=== PATIENT | female | born 1955 | race Two or more races ===

== ENCOUNTER 2017-08-26 17:49 | Emergency (ER) | payer BC ==
[2017-08-26 18:05] VITALS: BP 163/76; PULSE 68; TEMP 98.4; BMI 30.1
--- NOTE | 2017-08-26 18:20 | PDOC ---
History of Present Illness - General History Source: Patient Exam Limitations: No Limitations <Cristian High - Last Filed: 08/26/17 18:20> - General History Source: Patient Exam Limitations: No Limitations - History of Present Illness Initial Comments: The patient is a 61 year old female with a significant past medical history of stent placement (2x) and hypertension who presents to the emergency department for evaluation of bilateral leg pain. The patient reports landing on concrete after falling down the last 3 steps of the flight of stairs 3 days ago. The patient reports moderate right leg pain and mild left leg pain. The patient denies loss of consciousness, neck pain, and head trauma. She reports she was able to ambulate after her fall. She reports waking up this morning, noticing moderate right leg swelling and knee bruising which prompted her visit to the emergency department for further evaluation Of note, the patient reports she is currently taking plavix and aspirin. The patient denies chest pain, headache, and dizziness. Denies fevers, chills, nausea, vomiting, diarrhea, and constipation. Denies dysuria, frequency, urgency, and hematuria. Allergies: NKDA. Past surgical history: 2 stents [facility]CA(07-15-24) Social history: No reported cigarette, alcohol, or drug use. 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 <Archana Smith - Last Filed: 08/26/17 19:02> - General Chief Complaint: Injury Stated Complaint: FELL, LEFT KNEE PAIN Time Seen by Provider: 08/26/17 17:51 Past History - Past Medical History Cardiac Disorders: Yes (STENT PLACEMENT 1 MONTH AGO) COPD: No HTN: Yes Kidney Stones: Yes - Surgical History Cardiac Surgery: Yes (2 stents [facility]CA, .24.15) - Suicide/Smoking/Psychosocial Hx Smoking History: Never smoked Have you smoked in the past 12 months: No Information on smoking cessation initiated: No Hx Alcohol Use: No Drug/Substance Use Hx: No Substance Use Type: None Hx Substance Use Treatment: No <Cristian High - Last Filed: 08/26/17 18:20> <Archana Smith - Last Filed: 08/26/17 19:02> - Past Medical History Allergies/Adverse Reactions: Allergies Allergy/AdvReac Type Severity Reaction Status Date / Time No Known Allergies Allergy Verified 08/26/17 17:51 Home Medications: Ambulatory Orders Aspirin [ASA -] 81 mg PO DAILY 08/26/17 Diltiazem [Cardizem -] 240 mg PO DAILY 08/26/17 Losartan/Hydrochlorothiazide [Losartan-Hctz 100-25 mg Tab] 1 each PO DAILY 08/26 Pravastatin Sodium 10 mg PO DAILY 08/26/17 Review of Systems - Review of Systems Able to Perform ROS?: Yes Comments:: CONSTITUTIONAL: No reported: Fever, Chills, Diaphoresis, Generalized Weakness, Malaise, Loss of Appetite HEENT: No reported: , Eye Pain, Visual Changes CARDIOVASCULAR: No reported: Chest Pain, Syncope, Palpitations, Irregular Heart Rate, Lightheadedness, Peripheral Edema RESPIRATORY: No reported: Orthopnea, Wheezing, Stridor, Hemoptysis GASTROINTESTINAL: No reported: Abdominal pain, Nausea, Vomiting, Diarrhea, MUSCULOSKELETAL: (+)Bilateral Knee pain.No reported: Myalgia, Arthralgia, Back pain, Neck Pain SKIN: No reported: Rash, Itching, Pallor HEMEATOLOGIC/IMMUNOLOGIC: No reported: Easy Bleeding, Easy Bruising, Lymphadenopathy, Frequent infections NEUROLOGIC: No reported: Headache, Focal Weakness, Paresthesias, Vertigo, Lightheadedness. <Archana Smith - Last Filed: 08/26/17 19:02> *Physical Exam - Vital Signs Last Vital Signs Temp Pulse Resp BP Pulse Ox 98.4 F 68 20 163/76 99 08/26/17 17:50 08/26/17 17:50 08/26/17 17:50 08/26/17 17:50 08/26/17 17:50 <Cristian High - Last Filed: 08/26/17 18:20> - Vital Signs Last Vital Signs Temp Pulse Resp BP Pulse Ox 98.4 F 68 20 163/76 99 08/26/17 17:50 08/26/17 17:50 08/26/17 17:50 08/26/17 17:50 08/26/17 17:50 - Physical Exam Comments: GENERAL: The patient is awake, alert, and fully oriented, Nontoxic - in no acute distress. HEAD: Normocephalic, atraumatic. EYES: extraocular movements intact, sclera anicteric, conjunctiva clear. ENT: Normal voice, Moist mucous membranes. NECK: Normal range of motion, supple LUNGS: Breath sounds equal, clear to auscultation bilaterally. No wheezes, no rhonchi, no rales. HEART: Regular rate and rhythm, without murmur, rub or gallop. ABDOMEN: Soft, nontender, Back: No midline tenderness to the cervical, thoracic or lumbar spine Musculoskelatal: FROM of b/l shoulders, elbows, wrist. FROM of hips, knees, ankles - diffuse ecchymosis to the R knee with edema, mild diffuse edema to R knee, RLE, no calf tenderness, neg homans sign. LLE mild ecchymosis to L knee, normal ROM of b/l Hips, b/l knee. No other signs of ecchymosis, erythema, or crepitus noted on palpation extremities, chest wall, clavicals, ribs, back except as noted above <Archana Smith - Last Filed: 08/26/17 19:02> ED Treatment Course - Medications Given in the ED: ED Medications Discontinued Medications Generic Name Dose Route Start Last Admin Trade Name Tanvirq PRN Reason Stop Dose Admin Acetaminophen 650 mg 08/26/17 18:22 08/26/17 18:48 Tylenol - PO 08/26/17 18:23 Not Given ONCE ONE <Archana Smith - Last Filed: 08/26/17 19:02> Medical Decision Making - Medical Decision Making 08/26/17 18:20 61y F hx of CAD presents with knee pain. The pt states she slipped down 3 steps and injured her r knee. The pt denies any head injury, back pain, hip pain, numbness/tingling/weakness. Pt noticed increased bruising this morning as well as so presented for evaluation. on exam pt has mild diffuse edema and ecchymosis on knee with diffuse tenderness. normal ROM of her knee, hip. no calf tenderness, neg homans sign will ck xray to r/o fx tylenol for pain <Cristian High - Last Filed: 08/26/17 18:20> *DC/Admit/Observation/Transfer - Attestations Scribe Attestion: Documentation prepared by Archana Smith, acting as director medical economics for Cristian High MD. <Archana Smith - Last Filed: 08/26/17 19:02>
[2017-08-26] MEDS ORDERED: ACETAMINOPHEN 325 MG TABLET (FP) PO ONE (18:22)
[2017-08-26] MEDS ORDERED: ACETAMINOPHEN 325 MG TABLET (FP) ONE (18:47)
--- NOTE | 2017-08-26 19:27 | PDOC ---
*Physical Exam - Vital Signs Last Vital Signs Temp Pulse Resp BP Pulse Ox 98.4 F 68 20 163/76 99 08/26/17 17:50 08/26/17 17:50 08/26/17 17:50 08/26/17 17:50 08/26/17 17:50 ED Treatment Course - Medications Given in the ED: ED Medications Discontinued Medications Generic Name Dose Route Start Last Admin Trade Name Tracy PRN Reason Stop Dose Admin Acetaminophen 650 mg 08/26/17 18:22 08/26/17 18:48 Tylenol - PO 08/26/17 18:23 Not Given ONCE ONE Progress Note - Progress Note Progress Note: care of this patient was transferred to me from Dr. montero at 1900 hrs. patient is a 61-year-old female who injured her right knee 3 days ago when she fell while going down some stairs. Patient comes in now for increased pain and swelling of the knee and leg. Patient had an x-ray that was read by me as no acute fracture or dislocation or pathology. Patient told to 2 take Tylenol for the pain and follow-up with her primary care doctor or an orthopedist. Patient given the phone number of an orthopedist *DC/Admit/Observation/Transfer Diagnosis at time of Disposition: Right knee sprain Qualifiers: Encounter type: initial encounter Involved ligament of knee: unspecified ligament Qualified Code(s): S83.91XA - Sprain of unspecified site of right knee , initial encounter - Discharge Dispostion Disposition: HOME Decision to Admit order: No - Referrals - Patient Instructions Additional Instructions: Tylenol or Motrin as needed for pain. Wear the Geoffrey wrap for additional support and comfort. You can follow-up with an orthopedist if you need an orthopedist call [phone] for an appointment Return to the emergency department immediately with ANY new, persistent or worsening symptoms. Continue any medications as previously prescribed by your physician. You should follow up with your primary doctor as soon as possible regarding today's emergency department visit. . Please make sure your doctor reviews the results of your emergency evaluation. Thank you for coming to the Emergency Department today for your care. It was a pleasure to see you today. Please note that your evaluation is INCOMPLETE until you follow-up with your doctor. - Post Discharge Activity
== END 2017-08-26 19:38 | disposition home or self-care (01) ==
LOC: FER 17:49
DX: S83.91XA Sprain of unspecified site of right knee, initial encounter (principal); W10.9XXA Fall (on) (from) unspecified stairs and steps, initial encounter; Y93.89 Activity, other specified; Y92.9 Unspecified place or not applicable; I10 Essential (primary) hypertension; Z95.5 Presence of coronary angioplasty implant and graft
CPT/HCPCS: 73562-TC-RT-FY; 99281-25